=== PATIENT | male | born 1995 | race Caucasian/White ===

== ENCOUNTER 2021-09-08 23:24 | Emergency (ER) | payer OTHER, SELFPAY ==
--- NOTE | ~2021-09-08 | XR_ITS ---
EXAMINATION: XR chest 1V portable EXAM DATE: 09/09/2021 00:27 INDICATION: COVID cough . TECHNIQUE: Portable AP frontal chest x-ray was obtained. There is no prior study for comparison. FINDINGS: The lungs are clear. There are no pleural effusions. The cardiomediastinal silhouette is within normal limits. There is no pneumothorax suspected. The bones and soft tissues are unremarkab le. IMPRESSION: No acute cardiopulmonary findings. Reviewed, dictated and finalized at location A. IOLOGY TECHNICIAN
[2021-09-08 23:25] VITALS: BP 119/71; PULSE 70; RESP 16; TEMP 36.1; O2SAT 100
--- NOTE | 2021-09-08 23:41 | ED.URI ---
HPI - URI/Sore Throat General Chief Complaint: Upper Respiratory Infection Stated Complaint: Covid symptoms getting worse Time Seen by Provider: 09/08/21 23:29 Related Data Home Medications Medication Instructions Recorded Confirmed No Home Medications 09/08/21 09/08/21 Allergies Allergy/AdvReac Type Severity Reaction Status Date / Time Penicillins Allergy Difficulty Verified 09/08/21 23:45 Breathing Review of Systems Constitutional: Constitutional: Reports chills and Reports fever(s) Cardiovascular: Cardiovascular: Reports chest pain ( Sore from coughing) Respiratory: Respiratory: Reports chest congestion, Reports cough and Denies dyspnea Gastrointestinal: Gastrointestinal: Reports abdominal pain ( abdominal muscles are sore from coughing) PMFSH Past Medical History Medical History (Updated 09/09/21 @ 00:54 by Greg Maharaj MD) No active medical problems Surgical History Surgical History (Updated 09/08/21 @ 23:42 by Greg Maharaj MD) H/O hand surgery right Social History Social History (Updated 09/08/21 @ 23:46 by Greg Maharaj MD) Smoking status: Never smoker Alcohol intake: current Substance use: current Substance use type: marijuana Exam Const: General: no acute distress, alert and ill appearing acutely Nutritional Appearance: well nourished and thin Orientation/consciousness: patient oriented x3 Limitations: altered mental status HENMT: Head: normal to inspection Ears: external ears normal Eyes: Conjunctivae: conjunctivae normal Pupils: Equal, round and reactive pupils present EOM: EOMs intact bilaterally Neck: Neck: normal visual inspection Resp: Effort & Inspection: normal respiratory effort Auscultation: clear to auscultation bilaterally Cardio: Rate: regular rate Rhythm: regular rhythm GI: GI Palp: Yes Soft to palpation and Yes Tenderness to palpation present (GI) (mild generalized) Auscultation: normal bowel sounds Back/Spine/Pelvis: Cervical Spine: cervical ROM normal Thoracic/Lumbar Spine: thoraco-lumbar ROM normal Skin: General skin exam: normal color Rashes: no rashes Neuro: General: patient oriented x3, moves all extremities, no meningeal signs and no focal motor deficits Speech: normal speech Gait exam (Neuro): Normal gait present Extrem: General: normal to inspection and no clubbing, cyanosis or edema Psych: Mental Status: mental status grossly normal Affect: normal affect Attitude: cooperative Thought content: Yes Normal thought content present Course Course Emergency Course: I reviewed with the patient results of his lab work and chest x-ray. He does not have any risk factors and he has 100% oxygen saturation on room air. He will not need any further treatment. He is recommended to quarantine for 5 days and then wear tight-fitting mask for another 5 days Vital Signs Vital signs: Vital Signs Temperature 36.1 C L 09/08/21 23:25 Pulse Rate 70 09/08/21 23:25 Respiratory Rate 16 09/08/21 23:25 Blood Pressure 119/71 09/08/21 23:25 Pulse Oximetry 100 09/08/21 23:25 Temperature 36.1 C L 09/09/21 00:58 Pulse Rate 74 09/09/21 00:58 Respiratory Rate 14 09/09/21 00:58 Blood Pressure 109/66 09/09/21 00:58 Pulse Oximetry 100 09/09/21 00:58 MDM - URI/Sore Throat Lab Data Attestation: I reviewed the patient's lab results. Result diagrams: 09/08/21 23:58 09/08/21 23:58 Labs: Lab Results 09/08/21 09/08/21 09/08/21 Range/Units 23:45 23:58 23:58 WBC 4.2 L (4.8-10.8) K/mm3 RBC 4.60 L (4.70-6.10) M/mm3 Hgb 13.8 L (14.0-18.0) g/dL Hct 42.5 (40.0-54.0) % MCV 92.4 (78.0-102.0) fL MCH 30.0 (27.0-31.0) pg MCHC 32.5 (32.0-36.0) g/dL RDW 11.9 (11.6-14.4) % Plt Count 173 (150-420) K/mm3 MPV 10.7 (8.7-11.0) fl Immature Gran % (Auto) 0.2 H (0.0-0.0) % Neut % (Auto) 46.8 L (50.0-70.0) % Lymph % (Auto) 37.8
[2021-09-09 00:04] LABS: Basophils Absolute Auto 0.02 K/mm3 (0.00-0.10); Basophils Percent Auto 0.5 % (0.0-1.0); Eosinophils Absolute Auto 0.09 K/mm3 (0.02-0.50); Eosinophils Percent Auto 2.1 % (1.0-6.0); Hematocrit 42.5 % (40.0-54.0); Hemoglobin 13.8 g/dL (14.0-18.0); Immature Granulocyte Absolute 0.01 K/mm3 (0.00-0.00); Immature Granulocyte Percent A 0.2 % (0.0-0.0); Lymphocytes Absolute Auto 1.59 K/mm3 (1.10-4.50); Lymphocytes Percent Auto 37.8 % (18.0-42.0); Mean Corpuscular HGB Conc 32.5 g/dL (32.0-36.0); Mean Corpuscular Volume 92.4 fL (78.0-102.0); Mean Platelet Volume 10.7 fl (8.7-11.0); Monocytes Absolute Auto 0.53 K/mm3 (0.10-0.90); Monocytes Percent Auto 12.6 % (2.0-11.0); Neutrophils Percent Auto 46.8 % (50.0-70.0); Platelet Count Result 173 K/mm3 (150-420); Red Cell Distribution Width 11.9 % (11.6-14.4); White Blood Count 4.2 K/mm3 (4.8-10.8)
[2021-09-09 00:23] LABS: Lactic Acid Reflex 0.7 mmol/L (0.4-2.0)
[2021-09-09 00:24] LABS: SARS-CoV-2 RNA PCR Positive (Negative)
[2021-09-09 00:33] LABS: Alanine Aminotransferase 9 U/L (16-63); Albumin Level 3.8 g/dL (3.4-5.0); Alkaline Phosphatase 48 U/L (46-116); Anion Gap 8 mmol/L (8-16); Aspartate Amino Transferase < 10 U/L (15-37); Bilirubin,Total 0.4 mg/dL (0.00-1.00); Blood Urea Nitrogen 9 mg/dL (7-18); Calcium 8.7 mg/dL (8.5-10.1); Carbon Dioxide 30 mmol/L (21-32); Chloride 105 mmol/L (98-108); Estimated CRCL calculation 107 ml/min; Estimated Glomerular Filt Rate > 60; Ferritin 118 ng/mL (26-388); Glucose 98 mg/dL (70-99); Osmolality Calculated 294 mOsm/kg (285-295); Potassium 3.7 mmol/L (3.5-5.1); Sodium 143 mmol/L (136-145); Total Protein 6.9 g/dL (6.4-8.2)
[2021-09-09 00:39] LABS: CRP < 0.2 mg/dL (0.0-0.9)
[2021-09-09 00:58] VITALS: BP 109/66; PULSE 74; RESP 14; TEMP 36.1; O2SAT 100
== END 2021-09-09 01:08 | disposition home or self-care (01) ==
PROVIDERS: Emergency Provider Emergency Medicine
DX: U07.1 COVID-19 (principal)
CPT/HCPCS: 36415; 71045; 80053; 82728; 83605; 83735; 85025; 86140; 99282; 99283; C9803; U0003; U0005

== ENCOUNTER 2022-01-21 13:49 | Outpatient (CLI) | payer OTHER, SELFPAY ==
[2022-01-21 14:09] LABS: Hematocrit 45.3 % (40.0-54.0); Hemoglobin 14.6 g/dL (14.0-18.0); Mean Corpuscular HGB Conc 32.2 g/dL (32.0-36.0); Mean Corpuscular Hemoglobin 29.1 pg (27.0-31.0); Mean Corpuscular Volume 90.2 fL (78.0-102.0); Mean Platelet Volume 10.8 fl (8.7-11.0); Platelet Count Result 215 K/mm3 (150-420); Red Blood Count 5.02 M/mm3 (4.70-6.10); White Blood Count 5.1 K/mm3 (4.8-10.8)
[2022-01-21 14:52] LABS: Albumin Level 4.4 g/dL (3.4-5.0); Alkaline Phosphatase 47 U/L (46-116); Anion Gap 4 mmol/L (8-16); Aspartate Amino Transferase 11 U/L (15-37); Bilirubin,Total 0.8 mg/dL (0.00-1.00); Blood Urea Nitrogen 12 mg/dL (7-18); Carbon Dioxide 30 mmol/L (21-32); Chloride 102 mmol/L (98-108); Cholesterol 165 mg/dL (0-200); Estimated Glomerular Filt Rate > 60; Folic Acid 14.8 ng/mL (8.6->20); Glucose 101 mg/dL (70-99); HDL Direct 58 mg/dL (40-60); LDL Cholesterol Calculated 100 mg/dL (<130); Osmolality Calculated 281 mOsm/kg (285-295); Sodium 136 mmol/L (136-145); Total Protein 7.4 g/dL (6.4-8.2); Triglycerides 36 mg/dL (0-150); Vitamin B12 257 pg/mL (193-986)
[2022-01-21 14:54] LABS: Alanine Aminotransferase < 6 U/L (16-63)
== END 2022-01-21 13:50 | disposition home or self-care (01) ==
LOC: CHSLAB 13:53
PROVIDERS: PCP Physician Assistant; Visit Provider Physician Assistant
DX: Z00.00 Encounter for general adult medical examination without abnormal findings (principal)
CPT/HCPCS: 36415; 80053; 80061; 82607; 82746; 84443; 85027